=== PATIENT | female | born 1995 | race American Indian/Alaskan Native ===

== ENCOUNTER 2021-04-03 00:55 | Emergency (ER) | payer BC ==
[2021-04-03 02:02] LABS: Basophils % (Auto) 0.4 % (0.0-1.8); Eosinophils % (Auto) 0.4 % (0.0-4.3); Hemoglobin 12.9 gm/dl (10.1-14.3); Lymphocytes # (Auto) 0.8 K/mm3 (1.2-5.4); Lymphocytes % (Auto) 9.9 % (13.4-35.0); Mean Corpuscular HGB Conc 34 % (30-34); Mean Corpuscular Volume 77 fl (79-97); Monocytes # (Auto) 0.5 K/mm3 (0.0-0.8); Monocytes % (Auto) 5.9 % (0.0-7.3); Platelet Count 279 K/mm3 (140-440); Red Blood Count 4.93 M/mm3 (3.65-5.03); Red Cell Distribution Width 17.1 % (13.2-15.2)
[2021-04-03] MEDS ORDERED: ACETAMINOPHEN 325 MG TAB PO ONE (02:14)
[2021-04-03 02:23] LABS: Alanine Aminotransferase 14 units/L (7-56); Albumin 4.2 g/dL (3.9-5); Blood Urea Nitrogen 6 mg/dL (7-17); Calcium 9.3 mg/dL (8.4-10.2); Hemolysis Index 6
[2021-04-03 02:29] LABS: BUN/Creatinine Ratio 9
--- NOTE | 2021-04-03 03:06 | Emergency Department Report ---
<ANGELINE HO - Last Filed: 04/07/21 03:04> ED N/V/D HPI - General Chief complaint: Abdominal Pain Stated complaint: STOMACH PAIN/DIARRHEA Time Seen by Provider: 04/03/21 02:43 Source: patient Mode of arrival: Ambulatory Limitations: No Limitations - History of Present Illness MD complaint: nausea, vomiting, diarrhea -: Gradual Associated Abdominal Pain: No Location: diffuse Radiation: none Severity: mild Quality: cramping, aching Improves with: none Associated Symptoms: nausea/vomiting. denies: myalgias, chest pain, cough, headaches, malaise, syncope, weakness - Related Data Previous Rx's Medication Instructions Recorded Last Taken Type Ciprofloxacin HCl 500 mg PO BID #14 tablet 04/03/21 Unknown Rx Hyoscyamine Subl [Levsin Sl 0.125 0.125 mg SL Q6HR PRN #20 tab 04/03/21 Unknown Rx TAB] Ondansetron [Zofran ODT TAB] 8 mg PO Q12HR #14 tab.rapdis 04/03/21 Unknown Rx Allergies Allergy/AdvReac Type Severity Reaction Status Date / Time codeine Allergy Anaphylaxis Verified 04/03/21 01:21 ED Review of Systems Comment: All other systems reviewed and negative ED Past Medical Hx - Past Medical History Previous Medical History?: No Additional medical history: hypothyroidism, "nodule on thyroid" - Surgical History Past Surgical History?: No - Social History Smoking Status: Never Smoker Substance Use Type: Marijuana - Medications Home Medications: Home Medications Medication Instructions Recorded Confirmed Last Taken Type Ciprofloxacin HCl 500 mg PO BID #14 tablet 04/03/21 Unknown Rx Hyoscyamine Subl [Levsin Sl 0.125 0.125 mg SL Q6HR PRN #20 tab 04/03/21 Unknown Rx TAB] Ondansetron [Zofran ODT TAB] 8 mg PO Q12HR #14 tab.rapdis 04/03/21 Unknown Rx ED Physical Exam - General Limitations: No Limitations General appearance: alert, in no apparent distress - Head Head exam: Present: atraumatic, normocephalic - Eye Eye exam: Present: normal appearance, PERRL, EOMI - ENT ENT exam: Present: normal exam, mucous membranes moist - Neck Neck exam: Present: normal inspection - Respiratory Respiratory exam: Present: normal lung sounds bilaterally. Absent: respiratory distress, wheezes, stridor, chest wall tenderness - Cardiovascular Cardiovascular Exam: Present: regular rate, normal rhythm. Absent: systolic murmur, diastolic murmur, rubs, gallop - GI/Abdominal GI/Abdominal exam: Present: soft, normal bowel sounds. Absent: tenderness, guarding - Extremities Exam Extremities exam: Present: normal inspection - Back Exam Back exam: Present: normal inspection - Neurological Exam Neurological exam: Present: alert, oriented X3 - Psychiatric Psychiatric exam: Present: normal affect, normal mood - Skin Skin exam: Present: warm, dry, intact, normal color. Absent: rash ED Medical Decision Making - Lab Data Result diagrams: 04/03/21 01:40 04/03/21 01:40 - Medical Decision Making Patient presents to the emergency department with nausea, vomiting, diarrhea, differential diagnosis includes possible acute gastroenteritis. Abdominal examination without peritoneal signs. Currently patient is euvolemic without evidence of dehydration. No evidence of surgical abdomen or other acute medical emergency including bowel obstruction, viscus perforation, vascular catastrophe, appendicitis, cholecystitis at this time. Presentation not consistent with other acute emergent causes of vomiting and diarrhea at this time. No indication for abdominal imaging Plan supportive care, oral/IV rehydration, antiemetics and reassess ED Disposition Clinical Impression: Abdominal pain, Diarrhea Disposition: DC-01 TO HOME OR SELFCARE Is pt being admited?: No Does the pt Need Aspirin: No Condition: Good Instructions: Diarrhea, Adult, Viral Gastroenteritis, Adult, Campylobacter Gastroenteritis, Food Choices to Help Relieve Diarrhea, Adult, Salmonella Gastroenteritis, Adult, Probiotics, Norovirus Infection, Abdominal Pain (ED) Prescriptions: Ciprofloxacin HCl 500 mg PO BID #14 tablet Hyoscyamine Subl [Levsin Sl 0.125 TAB] 0.125 mg SL Q6HR PRN #20 tab PRN Reason: abdominal cramps and spasms Ondansetron [Zofran ODT TAB] 8 mg PO Q12HR #14 tab.rapdis Referrals: [facility] [Provider Group] - 3-5 Days <BONITA LESTER - Last Filed: 04/09/21 13:59> ED N/V/D HPI - General PUI?: No ED Review of Systems ROS: Stated complaint: STOMACH PAIN/DIARRHEA Other details as noted in HPI ED Course Vital Signs 04/03/21 04/03/21 04/03/21 01:25 02:15 04:19 Temperature 98.5 F Pulse Rate 110 H 83 Respiratory 18 18 16 Rate Blood Pressure 131/71 O2 Sat by Pulse 96 99 Oximetry ED Medical Decision Making - Lab Data Result diagrams: 04/03/21 01:40 04/03/21 01:40 Critical care attestation.: If time is entered above; I have spent that time in minutes in the direct care of this critically ill patient, excluding procedure time. ED Disposition Is pt being admited?: No Does the pt Need Aspirin: No
[2021-04-03 03:20] LABS: Bacteria,Urine 1+ /HPF (Negative); Bilirubin,Urine NEG (Negative); Blood,Urine NEG (Negative); Color,Urine Yellow (Yellow); Mucus,Urine FEW /HPF; Protein,Urine <15 mg/dL mg/dL (Negative); Urobilinogen,Urine < 2.0 mg/dL (<2.0)
[2021-04-03 04:10] VITALS: BP 131/71
== END 2021-04-03 04:18 | disposition home or self-care (01) ==
LOC: ED 00:55
DX: R10.84 Generalized abdominal pain (principal); R19.7 Diarrhea, unspecified; F12.10 Cannabis abuse, uncomplicated; Z79.2 Long term (current) use of antibiotics; Z79.899 Other long term (current) drug therapy; Z88.8 Allergy status to other drugs, medicaments and biological substances
CPT/HCPCS: 36415; 80053; 81001; 84703; 85025

== ENCOUNTER 2022-05-16 08:09 | Outpatient (CLI) | payer BC ==
[2022-05-16] MEDS ORDERED: LACTATED RINGERS 500 ML IV ONE (10:00)
[2022-05-16 10:03] LABS: Hematocrit 32.9 % (30.3-42.9); Hemoglobin 11.1 gm/dl (10.1-14.3); Mean Corpuscular HGB Conc 34 % (30-34); Mean Corpuscular Volume 76 fl (79-97); Platelet Count 233 K/mm3 (140-440); Red Blood Count 4.33 M/mm3 (3.65-5.03); Red Cell Distribution Width 15.9 % (13.2-15.2)
[2022-05-16 10:06] LABS: Bacteria,Urine 2+ /HPF (Negative)
[2022-05-16 10:14] LABS: Bilirubin,Urine Negative (Negative); Blood,Urine Negative (Negative); Urobilinogen,Urine < 2.0 mg/dL (<2.0)
[2022-05-16 10:15] LABS: Color,Urine Yellow (Yellow)
[2022-05-16 10:20] LABS: Alanine Aminotransferase 9 units/L (7-56); Uric Acid 5.5 mg/dL (3.5-7.6)
[2022-05-16 10:31] VITALS: BP 110/56
[2022-05-16] MEDS ORDERED: ONDANSETRON 4 MG/2 ML INJ IV NR (11:00)
== END 2022-05-16 11:03 | disposition home or self-care (01) ==
LOC: TRG 08:09 → APU 08:11 → TRG 11:03
PROVIDERS: ATTEND Obstetrics & Gynecology
DX: O26.892 Other specified pregnancy related conditions, second trimester (principal); R53.1 Weakness; R51.9 Headache, unspecified; O21.2 Late vomiting of pregnancy; O99.012 Anemia complicating pregnancy, second trimester; D64.9 Anemia, unspecified; Z3A.26 26 weeks gestation of pregnancy
CPT/HCPCS: 36415; 59025; 81001; 82565; 83615; 84450; 84460; 84550; 85027; 96361; 96365; J2405; J7120; 96360